=== PATIENT | male | born 1950 | race Two or more races ===

== ENCOUNTER 2016-06-08 13:00 | Outpatient (RCR) | payer OTHER ==
[~2016-06-08 13:00] MED LIST: ASPIRIN81 MG ORAL; BENAZEPRIL HCL40 MG ORAL; HYDROCHLOROTH12.5 M2 ORAL; OMEPRAZOLE20 M2 ORAL; VITAMIN B12-FO1 EAC1 PO
== END 2016-06-29 | disposition home or self-care (01) ==
LOC: PTY 13:00
PROVIDERS: ATTEND Internal Medicine
DX: M54.5 Low back pain (principal)
CPT/HCPCS: 29520; 97110; 97140; 97161; 97530; G0283

== ENCOUNTER 2016-06-30 09:00 | Outpatient (RCR) | payer OTHER | END 2016-07-30 | disposition home or self-care (01) | LOC: PTY 09:00 | PROVIDERS: ATTEND Internal Medicine | DX: M54.5 Low back pain (principal) | CPT/HCPCS: 97110; 97140; G0283 ==

== ENCOUNTER 2017-07-05 16:00 | Outpatient (RCR) | payer OTHER | END 2017-07-30 | disposition home or self-care (01) | LOC: PTY 16:00 | PROVIDERS: ATTEND Internal Medicine | DX: M75.81 Other shoulder lesions, right shoulder (principal); M75.21 Bicipital tendinitis, right shoulder ==

== ENCOUNTER 2017-07-15 14:06 | Outpatient (RCR) | payer OTHER | END 2017-07-30 | disposition home or self-care (01) | LOC: PTY 14:06 | PROVIDERS: ATTEND Internal Medicine | DX: M54.5 Low back pain (principal); M75.81 Other shoulder lesions, right shoulder; M75.21 Bicipital tendinitis, right shoulder; M41.9 Scoliosis, unspecified ==

== ENCOUNTER 2017-08-01 09:50 | Outpatient (RCR) | payer OTHER | END 2017-08-29 | disposition home or self-care (01) | LOC: PTY 09:50 | PROVIDERS: ATTEND Internal Medicine | DX: M54.5 Low back pain (principal); M75.81 Other shoulder lesions, right shoulder; M75.21 Bicipital tendinitis, right shoulder; M41.9 Scoliosis, unspecified; I10 Essential (primary) hypertension ==

== ENCOUNTER 2017-08-02 09:15 | Outpatient (RCR) | payer OTHER | END 2017-08-29 | disposition home or self-care (01) | LOC: PTY 09:15 | PROVIDERS: ATTEND Internal Medicine | DX: M75.81 Other shoulder lesions, right shoulder (principal); M75.21 Bicipital tendinitis, right shoulder; I10 Essential (primary) hypertension; M19.90 Unspecified osteoarthritis, unspecified site ==

== ENCOUNTER 2017-10-07 11:00 | Outpatient (RCR) | payer OTHER | END 2017-10-29 | disposition home or self-care (01) | LOC: PTY 11:00 | PROVIDERS: ATTEND Internal Medicine | DX: M54.5 Low back pain (principal) ==